=== PATIENT | female | born 1950 | race Caucasian/White ===

== ENCOUNTER → 2019-05-16 | Outpatient (CLI) | payer MEDICARE, OTHER | END | disposition home or self-care (01) | LOC: CFH 08:31 | PROVIDERS: ATTEND Urology | DX: N28.1 Cyst of kidney, acquired (principal); Z85.528 Personal history of other malignant neoplasm of kidney | CPT/HCPCS: 76770 ==

== ENCOUNTER 2021-03-01 12:02 | Emergency (ER) | payer OTHER ==
[~2021-03-01] VITALS: Ht 172.7 cm; Wt 76.8 kg
--- NOTE | 2021-03-01 12:42 | NUR ---
SHANK SKINNER: PT TO ROOM FROM [facility]
[2021-03-01] MEDS ORDERED: BACITRACIN ZINC OINT 500U/GM, 0.9 GM TP ONE (13:30)
[2021-03-01] MEDS ORDERED: SILVER NITRATE STICK TP ONE ×2 (13:30→14:01)
[2021-03-01] MEDS ORDERED: LIDOCAINE 2%, 10ML INFIL ONE (13:30)
[2021-03-01] MEDS ORDERED: TRANEXAMIC ACID 100 MG/ML, 10ML TP ONE (13:30)
[2021-03-01] MEDS ORDERED: OXYMETAZOLINE NASAL SPRAY 0.05%, 15ML NAS ONE (13:30)
--- NOTE | 2021-03-01 13:38 | NUR ---
BREAK RN: PT IN ROOM VISITING WITH FAMILY. PT IS NOT BLEEDING AT THIS TIME. VS STABLE. CALL LIGHT IN PLACE. WILL CONTINUE TO MONITOR WHILE PRIMARY RN IS ON BREAK.
--- NOTE | 2021-03-01 13:40 | NUR ---
BLOODY NOSE X 4 HOURS. DIZZINESS X 1 HOUR. no blood thinners Hx of same
[2021-03-01] MEDS ORDERED: OXYMETAZOLINE NASAL SPRAY 0.05%,30ML ONE (14:01)
[2021-03-01] MEDS ORDERED: NEOSPORIN OINT. PKT 1 PACKET ONE (14:01)
[2021-03-01] MEDS ORDERED: TRANEXAMIC ACID 100 MG/ML, 10ML ONE (14:01)
[2021-03-01] MEDS ORDERED: LIDOCAINE-MPF 2% ,5ML ONE (14:02)
--- NOTE | 2021-03-01 14:50 | NUR ---
ERP AT BEDSISE TXA/AFRIN INEFFECTIVE. ERP CAUTERIZED WITH SILVER NITRATE. TO REASSESS IN 30 MIN (315P)
[2021-03-01] MEDS ORDERED: HYDROcodone/APAP 5/325 TABLET ONE (15:08)
--- NOTE | 2021-03-01 15:29 | NUR ---
WITH REASSESSMENT- BLEEDING RESOLVED-ERP TO BEDSIDE. TO D/C
[2021-03-01] MEDS ORDERED: HYDROcodone/APAP 5/325 TABLET PO ONE (15:30)
[2021-03-01 15:34] VITALS: BP 127/80
== END 2021-03-01 15:37 | disposition home or self-care (01) ==
LOC: ED 15:28
DX: R04.0 Epistaxis (principal); I10 Essential (primary) hypertension; M10.9 Gout, unspecified; G43.909 Migraine, unspecified, not intractable, without status migrainosus
CPT/HCPCS: 30901; 99284; J2001